=== PATIENT | female | born 2005 | race Caucasian/White ===

== ENCOUNTER 2023-05-03 00:42 | Emergency (ER) | payer OTHER, SELFPAY ==
[2023-05-03 00:45] VITALS: BP 133/81; PULSE 100; RESP 18; TEMP 36.8; O2SAT 98; BMI 29.2
--- NOTE | 2023-05-03 01:05 | RAD_ITS ---
STUDY: X-RAY - UNILATERAL RIBS ( RIGHT ) WITH CHEST REASON FOR EXAM: Female, 17 years old. trauma, pain TECHNIQUE - RIBS: 4 view(s) of the ribs. TECHNIQUE - CHEST: Single PA view of the chest. COMPARISON: None. FINDINGS - RIBS: Normal visualized ribs without a demonstrated fracture. FINDINGS - CHEST: The lungs are clear and expanded. There is no demonstrated pleural abnormality. Normal size heart. Normal mediastinum and [place]. Normal visualized pulmonary arteries. Normal visualized aortic arch and descending thoracic aorta. Normal visualized thoracic spine. Normal visualized ribs, clavicles, and shoulders. There is no demonstrated abnormality of the visualized soft tissue structures of the upper abdomen. RAD/Ribs Uni Min 3V w/PA Chest IMPRESSION: RIBS: No evidence of right-sided rib fracture. CHEST: Normal x-ray examination of the chest. Electronically Signed: Nelida Cano MD at 1:46 EST ,
--- NOTE | 2023-05-03 01:05 | EX.ED.GENINJ ---
HPI History of Present Illness Chief Complaint: Other, Pain/Inj Narrative Narrative: 17-year-old female who denies significant past medical history presents with right lateral rib pain that she has had for about a week and a half, but worsened tonight after someone fell into her. She states that she was sitting in the chair and someone was sitting on the arm when another person walked by and the person sitting on the arm fell into her right ribs. While she has had pain in her right ribs from coughing, she is taking ibuprofen without relief. She states that after this person fell into her, 40 minutes later she coughed and hurt her rib crack and pop. She now has pain on that right side. She denies other injury. [facility] Medical History no medical history Allergy/AdvReac Type Severity Reaction Status Date / Time No Known Allergies Allergy Verified 05/03/23 00:44 Social History Smoking Status: Current every day smoker tobacco type: e-cigarettes ROS ROS ED ROS Narrative Constitutional: No fever, no chills. HEENT: No sore throat. No neck pain. No loss of vision. No rhinorrhea. Cardiovascular: Right lateral rib pain/chest pain. No palpitations. No pedal edema. Respiratory: Positive cough, no shortness of breath. Abdominal: No abdominal pain. No nausea. No vomiting. Genitourinary: No dysuria. No hematuria. Musculoskeletal: No myalgias. No arthralgias. Neurologic: No headaches. No dizziness. No lightheadedness. Skin: No rash. No change in color. Psychiatric: No depression. No anxiety. EXAM Physical Exam Narrative Exam Narrative: Afebrile. Vital signs noted. HEENT: Normocephalic. Atraumatic. PERRL, EOMI. Neck soft and supple. No point tenderness or step off. Cardiovascular: Regular rate and rhythm. No murmurs, rubs, or gallops appreciated. Mild tenderness to palpation right lateral ribs in the midaxillary line. No crepitance. Respiratory: No tachypnea. Lungs clear to auscultation bilaterally. Equal breath sounds bilaterally. Gastrointestinal: Abdomen soft, nontender, with normoactive bowel sounds. No rebound or guarding. Neurological: Awake. Alert. Nonfocal, nonlateralizing. Skin: No rash. Normal color. No pallor. Musculoskeletal: No pedal edema. Full range of motion extremities. Const Vital Signs: 05/03/23 00:45 Temperature 98.3 F Temperature Source Temporal Pulse Rate 100 Respiratory Rate 18 Blood Pressure 133/81 H Blood Pressure Mean 98 Pulse Ox 98 Oxygen Delivery Method Room Air MDM MDM MDM Narrative Medical decision making narrative: In the differential diagnosis is rib contusion versus costochondritis versus intercostal muscle tear versus rib fracture. I have low suspicion for pneumothorax based on her physical exam. Her pulse ox is 98% on room air. As she states that ibuprofen has been ineffective in treating her pain, she was given 1 tramadol tablet. I do not feel narcotics are indicated currently. Right rib x-rays were obtained and interpreted by myself independently. I see no evidence of an acute rib fracture, pneumothorax or pneumonia. I reviewed the radiology report which confirms my independent interpretation. At this point in time, I do not feel narcotic pain medications are indicated for outpatient use. She Can continue [id number] medications and icing the affected area, and follow-up with her primary care provider. Return instructions to the emergency department were reviewed. Disposition is discharged home in stable condition. History & Record Review Additional record(s) reviewed:: No prior records Radiography Diagnostic Testing: Clinical Impression(s) from Imaging Studies Ribs w/Chest X-Ray 05/03/23 01:05 IMPRESSION: RIBS: No evidence of right-sided rib fracture. CHEST: Normal x-ray examination of the chest. Electronically Signed: Nelida Cano MD at 1:46 EST Reading Location ID and State: [address] [place] [address] , Service support , Discharge Plan Triage Chief Complaint: Other, Pain/Inj ED Provider: Lon Fisher Dx/Rx/DC Orders Clinical Impression: Rib pain on right side, Contusion of rib on right side Instructions: ED Chest Wall Contusion, ED Bruise, Rib Primary Care Provider: Tim Degroot Referrals: NOT,DEFINED [Non-Staff] - Activity Restrictions/Additional Instructions: Continue [id number] medications like Tylenol or ibuprofen for pain. Ice the affected area for 10 to 15 minutes a few times a day. Follow-up with your primary care provider. Disposition Disposition: Home, Self Care
[2023-05-03] MEDS: traMADol 50 MG Tablet PO (01:13)
== END 2023-05-03 02:15 | disposition home or self-care (01) ==
PROVIDERS: Emergency Provider Emergency Medicine; PCP Pediatrics; Visit Provider Emergency Medicine
DX: S20.211A Contusion of right front wall of thorax, initial encounter (principal); W51.XXXA Accidental striking against or bumped into by another person, initial encounter; F17.290 Nicotine dependence, other tobacco product, uncomplicated
CPT/HCPCS: 71101; 99282